=== PATIENT | male | born 1970 | race Caucasian/White ===

== ENCOUNTER 2020-03-18 20:04 | Emergency (ER) | payer BC, SELFPAY ==
[2020-03-18 20:10] VITALS: BP 151/79; PULSE 114; RESP 20; TEMP 37.2; O2SAT 99
[2020-03-18 21:07] LABS: Bacteria Urine None Seen; WBC Urine None Seen (0-5/HPF)
--- NOTE | 2020-03-18 21:19 | DI.CT.S_ITS ---
PROCEDURE: CT ABDOMEN PELVIS W CON INDICATIONS: IV contrast only/pelvic pain TECHNIQUE: After the administration of intravenous contrast, 5 mm thick sections acquired from the diaphragm to the symphysis. 5 mm coronal and sagittal reformats were acquired. For radiation dose reduction, the following was used: automated exposure control, adjustment of mA and/or kV according to patient size. COMPARISON: None. FINDINGS: Image quality: Excellent. ABDOMEN: Lung bases: There is mild dependent atelectasis in the lung bases. Heart size is normal. Solid organs: Liver is normal in size and enhancement. Gallbladder appears normal.. Biliary system is non dilated. Pancreas enhances normally. Spleen is normal in size and enhancement. No adrenal nodules. Kidneys demonstrate normal size, without hydronephrosis. 2 adjacent nonobstructing calculi in the superior pole of the left kidney measure 5 mm and 3 mm in diameter respectively. Hypoattenuating cysts are also seen in the left upper pole. Peritoneum and bowel: Multiple diverticula are seen in the sigmoid colon. There is bowel wall thickening and inflammatory fat stranding surrounding a sigmoid diverticulum compatible with acute diverticulitis. No focal fluid collection is seen. There is no pneumoperitoneum. There are no signs of bowel obstruction. Nodes and vessels: No retroperitoneal or mesenteric adenopathy by size criteria. Aorta and inferior vena cava are normal in size. Miscellaneous: No ventral hernias. PELVIS: Genitourinary: Bladder wall thickness is normal. Miscellaneous: No inguinal hernias or adenopathy. Bones: No suspicious bony lesions. No vertebral body compression fractures. Mild degenerative changes are seen in the spine. IMPRESSION: 1. Acute uncomplicated sigmoid diverticulitis. 2. Non-obstructing left renal calculi. Dictated by: Trung Coker M.D. on 03/18/2020 at 21:52 Approved by: Trung Coker M.D. on 03/18/2020 at 21:57
--- NOTE | 2020-03-18 21:25 | ED_ITS ---
HPI - Abdominal Pain General Chief Complaint: Abdominal Pain Stated Complaint: Groin/ pelvis cramps Time Seen by Provider: 03/18/20 21:13 Source: patient and family Mode of arrival: Ambulatory History of Present Illness HPI narrative: Patient here with . Complaints slow onset of pelvic pain with bladder pressure and relief with urination in the past 2 days. Patient here visiting from [place]. No dysuria. No fever chills. No back pain or flank pain. No hematuria. Denies any testicular pain. No urethral discharge MD complaint: abdominal pain Related Data Previous Rx's Medication Instructions Recorded ciprofloxacin HCl 500 mg PO BID #14 tab 03/18/20 hydrocodone-acetaminophen 1 tab PO Q8H PRN #14 tab 03/18/20 metronidazole 500 mg PO TID #21 tab 03/18/20 ondansetron 4 mg PO Q8H PRN #10 tab 03/18/20 Allergies Allergy/AdvReac Type Severity Reaction Status Date / Time No Known Drug Allergies Allergy Verified 03/18/20 20:11 Review of Systems Review of Systems Narrative: GENERAL: Denies chills, fatigue, malaise, fever, sweats. HEENT: Denies sinus pain, ear pain, sore throat, difficulty swallowing, dizziness. RESPIRATORY: Denies dyspnea, cough, wheezing, hemoptysis, sputum. CARDIOVASCULAR: Denies chest pain, palpitations, orthopnea, edema, GASTROINTESTINAL: Denies nausea, vomiting, complains of abdominal pain, denies diarrhea, constipation, melena. : Denies dysuria, frequency, incontinence, hematuria, urinary retention. Complaints of bladder pressure MUSCULOSKELETAL: denies weakness, joint pain, or bony pain SKIN: Denies rash, skin lesions NEUROLOGIC: Denies weakness, headache, numbness, change in speech, confusion, seizures, incoordination. PSYCHIATRIC: No concerning psychosocial issues. ROS Unobtainable: All systems reviewed & are unremarkable except as noted in HPI and below Exam Narrative Exam Narrative: GENERAL: patient appears stated age. Well-nourished, well- developed patient, in no distress, not toxic HEAD: Atraumatic. Normocephalic. EYES: Pupils equal round and reactive. Extraocular motions intact. No scleral icterus. No injection or drainage. ENT: Nose without bleeding, purulent drainage. Throat without erythema, tonsillar hypertrophy or exudate. Airway patent. NECK: Trachea midline. Non tender CARDIOVASCULAR: Regular rate and rhythm without murmurs, gallops, or rubs. RESPIRATORY: Clear to auscultation. Breath sounds equal bilaterally. No wheezes, rales, or rhonchi. GASTROINTESTINAL: Abdomen soft, non-tender, nondistended. Bowel sounds present no peritoneal signs : Normal external exam. No testicular tenderness no epididymal tenderness. No urethral discharge. Slight tenderness in suprapubic EXTREMITIES: No edema or joint tenderness. BACK: Nontender without deformity or crepitance. No flank tenderness. NEURO: AOx4. SKIN: No rash or erythema of visible areas PSYCH: Not anxious, is cooperative Initial Vital Signs Initial Vital Signs: Vital Signs Temperature 98.9 F 03/18/20 20:10 Pulse Rate 114 H 03/18/20 20:10 Respiratory Rate 20 03/18/20 20:10 Blood Pressure 151/79 H 03/18/20 20:10 Pulse Oximetry 99 03/18/20 20:10 Course Orders Ordered: ED Orders 03/18/20 21:06 Urine Microscopic Stat 03/18/20 21:19 CT abdomen pelvis w con Stat 03/18/20 21:35 Complete Blood Count AUTO DIFF Stat Comprehensive Metabolic Panel Stat Lipase Stat Discontinued Medications Ciprofloxacin (Cipro) 500 mg PO NOW ONE Stop: 03/18/20 22:26 Last Admin: 03/18/20 22:31 Dose: 500 mg Documented by: KODY Sodium Chloride (Normal Saline 0.9%) 1,000 mls @ 1,000 mls/hr IV BOLUS ONE Stop: 03/18/20 22:17 Last Infusion: 03/18/20 23:40 Dose: 0 mls/hr Documented by: Admin: 03/18/20 21:39 Dose: 1,000 mls/hr Documented by: KODY Metronidazole (Flagyl) 500 mg in 100 mls @ 100 mls/hr IV NOW ONE Stop: 03/18/20 23:24 Last Infusion: 03/18/20 23:40 Dose: 0 mls/hr Documented by: Admin: 03/18/20 22:31 Dose: 100 mls/hr Documented by: KODY Morphine Sulfate (Morphine) 4 mg IV NOW ONE Stop: 03/18/20 23:15 Last Admin: 03/18/20 23:19 Dose: 4 mg Documented by: KODY Ondansetron HCl (Zofran) 4 mg IV NOW ONE Stop: 03/18/20 23:15 Last Admin: 03/18/20 23:19 Dose: 4 mg Documented by: KODY Reevaluation(s) Reevaluation #1: Pain controlled. Patient desires pain medication prior to departure. For the car ride. And to help sleep tonight. Reviewed labs and results with patient and . They are comfortable with home observation and treatment. They desire discharge home. Not toxic at discharge Time: 23:11 Vital Signs Vital signs: Vital Signs - 8 hr 03/18/20 20:10 03/18/20 23:41 Temperature 98.9 F Pulse Rate 114 H 78 Respiratory Rate 20 16 Blood Pressure 151/79 H 115/65 Pulse Oximetry 99 98 MDM - Abdominal Pain Differential Diagnosis Differential diagnosis: Likely abdominal pain, calculus of kidney, diverticulitis and small bowel obstruction Lab Data Attestation: I reviewed the patient's lab results. Result diagrams: 03/18/20 21:35 03/18/20 21:35 Labs: Lab Results 03/18/20 03/18/20 03/18/20 Range/Units 21:06 21:35 21:35 WBC 15.4 H (4.5-11.0) X10^3/uL RBC 4.99 (4.5-5.9) X10^6/uL Hgb 15.4 (13.5-17.5) g/dL Hct 45.0 (41-53) % MCV 90.2 (80-100) fL MCH 30.9 (26-34) PG MCHC 34.3 (30-36) % RDW 12.6 (11.6-14.8) % Plt Count 226 (150-400) X10^3/uL Neut % (Auto) 76.4 H (50-75) % Lymph % (Auto) 12.7 L (25-40) % [place] % (Auto) 10.1 (3-14) % Eos % (Auto) 0.4 L (2-4) % Baso % (Auto) 0.4 (0-2) % Neut # (Auto) 62301 H (4078-6405) /uL Lymph # (Auto) 1900 (4732-2239) /uL [place] # (Auto) 1600 H (0-900) /uL Eos # (Auto) 100 (0-450) /uL Baso # (Auto) 100 (0-100) /uL Sodium 133 L (137-145) mmol/L Potassium 3.4 (3.4-5.1) mmol/L Chloride 98 (98-107) mmol/L Carbon Dioxide 25 (22-32) mmol/L BUN 10 (9-20) mg/dL Creatinine 0.70 (0.66-1.25) mg/dL Estimated GFR > 60.0 (>60) mL/min BUN/Creatinine Ratio 14.3 (6-22) Glucose 151 H (70-100) mg/dL Calcium 9.2 (8.4-10.2) mg/dL Total Bilirubin 1.4 H (0.2-1.3) mg/dL AST 24 (17-59) IU/L ALT 26 (<50) IU/L Alkaline Phosphatase 79 (38-126) U/L Total Protein 7.9 (6.3-8.2) g/dL Albumin 4.3 (3.5-5.0) g/dL Globulin 3.6 (1.7-4.1) g/dL Albumin/Globulin Ratio 1.2 (1.0-2.8) Lipase 102 (23-300) U/L Urine RBC 1-5/hpf (0-5/HPF) Urine WBC None seen (0-5/HPF) Urine Bacteria None seen (None) Urine Mucus 1+ H (Negative) Ur Culture Indicated? Cult not indicated Point of care testing: Urine Dip Bedside Urine Glucose Negative Bedside Urine Bilirubin - Negative Bedside Urine Ketone - Negative Urine Specific [place] 1.020 Bedside Urine Occult Blood + Bedside Urine pH 6.0 Bedside Urine Protein +/- 15 Bedside Urine Urobilinogen +/- 1mg Bedside Urine Nitrite - Negative Bedside Urine Leukocytes - Negative Esterase Imaging Data CT scan - abdomen/pelvis: Radiologist's Impression: [address] [address] [address] Scan Report Signed Patient: Vinny Spencer#: [id number] : 1970Acct:[id number] Age/Sex: 49 / MDate of Service: 03/18/20 Loc: ED Accession Number: [id number] Procedure: CT abdomen pelvis w con Ordering Provider: Brennick,Paras MD PROCEDURE: CT ABDOMEN PELVIS W CON INDICATIONS: IV contrast only/pelvic pain TECHNIQUE: After the administration of intravenous contrast, 5 mm thick sections acquired from the diaphragm to the symphysis. 5 mm coronal and sagittal reformats were acquired. For radiation dose reduction, the following was used: automated exposure control, adjustment of mA and/or kV according to patient size. COMPARISON: None. FINDINGS: Image quality: Excellent. ABDOMEN: Lung bases: There is mild dependent atelectasis in the lung bases. Heart size is normal. Solid organs: Liver is normal in size and enhancement. Gallbladder appears normal.. Biliary system is non dilated. Pancreas enhances normally. Spleen is normal in size and enhancement. No adrenal nodules. Kidneys demonstrate normal size, without hydronephrosis. 2 adjacent nonobstructing calculi in the superior pole of the left kidney measure 5 mm and 3 mm in diameter respectively. Hypoattenuating cysts are also seen in the left upper pole. Peritoneum and bowel: Multiple diverticula are seen in the sigmoid colon. There is bowel wall thickening and inflammatory fat stranding surrounding a sigmoid diverticulum compatible with acute diverticulitis. No focal fluid collection is seen. There is no pneumoperitoneum. There are no signs of bowel obstruction. Nodes and vessels: No retroperitoneal or mesenteric adenopathy by size criteria. Aorta and inferior vena cava are normal in size. Miscellaneous: No ventral hernias. PELVIS: Genitourinary: Bladder wall thickness is normal. Miscellaneous: No inguinal hernias or adenopathy. Bones: No suspicious bony lesions. No vertebral body compression fractures. Mild degenerative changes are seen in the spine. IMPRESSION: 1. Acute uncomplicated sigmoid diverticulitis. 2. Non-obstructing left renal calculi. Dictated by: Trung Coker M.D. on 03/18/2020 at 21:52 Approved by: Trung Coker M.D. on 03/18/2020 at 21:57 [facility] Narrative Medical decision making narrative: Appropriate for discharge home. Patient nontoxic. No fever. White count noted however patient is not toxic. They agree for outpatient treatment for diverticulitis. They are from out of town. They will call primary care when they return to [place]. Discharge Plan Departure Patient Disposition: Home Clinical Impression: Diverticulitis Discharge Date/Time: 03/18/20 23:41 Instructions: DI for Diverticulitis Activity Restrictions/Additional Instructions: Return immediately if worse or if any questions or concerns or any rectal bleeding. See family doctor when you return home this week and to schedule colonoscopy. No driving or operating machinery with pain medication. Continue antibiotics tomorrow. No alcohol products with prescribed medications Prescriptions: New metronidazole 500 mg tablet 500 mg PO TID Qty: 21 RF: 0 ciprofloxacin HCl 500 mg tablet 500 mg PO BID Qty: 14 RF: 0 ondansetron 4 mg tablet,disintegrating 4 mg PO Q8H PRN (Reason: nausea and vomiting) Qty: 10 RF: 0 hydrocodone-acetaminophen 7.5-325 mg tablet 1 tab PO Q8H PRN (Reason: pain) Qty: 14 RF: 0 Referrals: Ran Chen MD [Primary Care Provider] - Stand Alone Forms: Work Release Note
[2020-03-18 21:26] LABS: Culture Indicated Urine Cult Not Indicated; Mucus Urine 1+ (Negative); RBC Urine 1-5/HPF (0-5/HPF)
[2020-03-18] MEDS: SODIUM CHLORIDE 0.9% 1,000 ML 1000 ML IV (21:39)
[2020-03-18 21:43] LABS: Add Manual Diff / Slide Review NO; Basophils Absolute Auto 100 /uL (0-100); Basophils Percent Auto 0.4 % (0-2); Eosinophils Absolute Auto 100 /uL (0-450); Eosinophils Percent Auto 0.4 % (2-4); Hemoglobin 15.4 g/dL (13.5-17.5); Lymphocytes Absolute Auto 1900 /uL (1100-4500); Lymphocytes Percent Auto 12.7 % (25-40); Mean Corpuscular HGB Conc 34.3 % (30-36); Mean Corpuscular Hemoglobin 30.9 PG (26-34); Mean Corpuscular Volume 90.2 fL (80-100); Monocytes Absolute Auto 1600 /uL (0-900); Monocytes Percent Auto 10.1 % (3-14); Neutrophils Absolute Auto 11800 /uL (1500-7000); Neutrophils Percent Auto 76.4 % (50-75); Platelet Count 226 X10^3/uL (150-400); Red Blood Cell Count 4.99 X10^6/uL (4.5-5.9); Red Cell Distribution Width 12.6 % (11.6-14.8); White Blood Cell Count 15.4 X10^3/uL (4.5-11.0)
[2020-03-18 21:57] LABS: Alanine Aminotransferase 26 IU/L (<50); Albumin 4.3 g/dL (3.5-5.0); Albumin Globulin Ratio 1.2 (1.0-2.8); Alkaline Phosphatase 79 U/L (38-126); Aspartate Aminotransferase 24 IU/L (17-59); BUN Creatinine Ratio 14.3 (6-22); Bilirubin Total 1.4 mg/dL (0.2-1.3); Blood Urea Nitrogen 10 mg/dL (9-20); Calcium 9.2 mg/dL (8.4-10.2); Carbon Dioxide 25 mmol/L (22-32); Chloride 98 mmol/L (98-107); Estimated Glomerular Filt Rate > 60.0 mL/min (>60); Globulin 3.6 g/dL (1.7-4.1); Glucose 151 mg/dL (70-100); HEMOLYSIS < 15 (0-50); Lipase 102 U/L (23-300); Potassium 3.4 mmol/L (3.4-5.1); Sodium 133 mmol/L (137-145); Total Protein 7.9 g/dL (6.3-8.2)
[2020-03-18] MEDS: metroNIDAZOLE 500 MG/100 ML PIGGYBACK 100 MG IV (22:31)
[2020-03-18] MEDS: CIPROFLOXACIN 500 MG TABLET PO (22:31)
[2020-03-18] MEDS: MORPHINE 4 MG/ML INJ IV (23:19)
[2020-03-18] MEDS: ONDANSETRON 4 MG/2 ML INJ IV (23:19)
[2020-03-18 23:41] VITALS: BP 115/65; PULSE 78; RESP 16; O2SAT 98
== END 2020-03-18 23:41 | disposition home or self-care (01) ==
PROVIDERS: Emergency Provider Emergency Medicine; PCP Internal Medicine
DX: K57.92 Diverticulitis of intestine, part unspecified, without perforation or abscess without bleeding (principal)
CPT/HCPCS: 36415; 74177; 80053; 81003; 81015; 83690; 85025; 96365; 96375; 99284; J2270; J2405; Q9967